=== PATIENT | female | born 1950 | race Caucasian/White ===

== ENCOUNTER 2017-10-08 13:33 | Outpatient (CLI) | payer MEDICARE, OTHER ==
--- NOTE | 2017-10-09 17:14 | Mammography Report ---
DIGITAL BILATERAL SCREENING MAMMOGRAM: 10/08/2017 COMPARISON STUDY: Mammogram 07/26/2016. INDICATION: Screening exam. TECHNIQUE: Bilateral MLO and CC breast views. FINDINGS The breast parenchyma is heterogeneously dense, which may limit the sensitivity of mammography. Prior right breast procedure. Architectural distortion corresponds to an apparent surgical scar. It is slightly more conspicuous on today's exam. No dominant mass or concerning cluster of microcalcifications is seen. IMPRESSION: BIRADS 3. PROBABLY BENIGN. Postsurgical scar is slightly more conspicuous. Recommend a followup mammogram in 3-6 months to further evaluate. STANDARD QUALIFYING STATEMENTS 1. This examination was reviewed with the aid of Computed-Aided Detection (CAD) . 2. A negative or benign imaging report should not delay biopsy if clinically suspicious findings are present. Consider surgical consultation if warranted. More than 5 % of cancers are not identified by imaging. 3. Dense breasts may obscure an underlying neoplasm. TD: 10/09/2017 16:44 DEJON
== END 2017-10-08 13:34 | disposition home or self-care (01) ==
LOC: DI.N 13:33
PROVIDERS: ATTEND Internal Medicine
DX: Z12.31 Encounter for screening mammogram for malignant neoplasm of breast (principal)
CPT/HCPCS: 77067

== ENCOUNTER 2018-04-11 14:14 | Outpatient (CLI) | payer MEDICARE ==
--- NOTE | 2018-04-11 15:30 | Mammography Report ---
Reason: OTH ABN AND INCONCLUSIVE FINDINGS ON DX IMAGING OF Procedure Date: 04/11/2018 Accession Number: [id number] / [id number] Procedure: WANDA - Diagnostic Dig RT CPT Code: FULL RESULT: EXAM: Diagnostic Dig RT DATE: 04/11/2018 3:13 PM CLINICAL HISTORY: BI-RADS 3. Prior mammogram showed slightly more conspicuous area of architectural distortion at a known surgical site. TECHNIQUE: Unilateral right MLO, LM, and CC breast views. COMPARISON: Mammogram October 08, 2017 FINDINGS: Breast parenchyma is heterogeneously dense which may limit the sensitivity of mammography. The area of architectural distortion seen on a prior mammogram is less conspicuous and seen only on the CC view on today's examination. No dominant mass or suspicious clustered microcalcifications is seen. IMPRESSION: BI-RADS Category 3. Probably benign. Area of architectural distortion at a known surgical site is less conspicuous on today's exam. Recommend 6 month follow-up bilateral diagnostic mammogram. BIRADS CATEGORY 3. Probably benign findings. STANDARD QUALIFYING STATEMENTS: 1. This examination was reviewed with the aid of Computer-Aided Detection (CAD). 2. A negative or benign imaging report should not delay biopsy if clinically suspicious findings are present. Consider surgical consultation if warrented. More than 5% of cancers are not identified by imaging. 3. Dense breasts may obscure an underlying neoplasm.
== END 2018-04-11 14:15 | disposition home or self-care (01) ==
LOC: DI 14:14
PROVIDERS: ATTEND Internal Medicine
DX: R92.8 Other abnormal and inconclusive findings on diagnostic imaging of breast (principal)

== ENCOUNTER 2018-10-11 10:09 | Outpatient (CLI) | payer MEDICARE | END 2018-10-11 10:10 | disposition home or self-care (01) | LOC: DI.N 10:09 | DX: Z53.21 Procedure and treatment not carried out due to patient leaving prior to being seen by health care provider (principal) ==

== ENCOUNTER 2018-11-14 10:56 | Outpatient (CLI) | payer MEDICARE ==
--- NOTE | 2018-11-14 11:48 | Mammography Report ---
Reason: ABNORMAL FINDINGS ON DX IMAGING OF PRT DIGESTIVE T Procedure Date: 11/14/2018 Accession Number: [id number] / [id number] Procedure: WANDA - Diagnostic Dig Bilat CPT Code: FULL RESULT: EXAM: Diagnostic Dig Bilat DATE: 11/14/2018 11:39 AM CLINICAL HISTORY: History of right lumpectomy for breast cancer. Patient returns for follow-up imaging of right breast lumpectomy site. TECHNIQUE: (B) - Bilateral CC and MLO views were obtained. COMPARISON: 04/11/2018, 10/08/2017 PARENCHYMAL PATTERN: (A) - The breasts demonstrate scattered fibroglandular densities bilaterally. FINDINGS: Stable minor treatment related postoperative architectural distortion in upper outer quadrant right breast, posterior one third. No suspicious finding. IMPRESSION: Benign findings. BI-RADS category 2. RECOMMENDATION: (ANNUAL) - Recommend routine annual screening mammography. BI-RADS CATEGORY: (2) - Benign Findings. STANDARD QUALIFYING STATEMENTS: 1. This examination was not reviewed with the aid of Computer-Aided Detection (CAD). 2. A negative or benign imaging report should not preclude biopsy if clinically suspicious findings are present. 3. Dense breasts may obscure an underlying neoplasm. 4. This examination was reviewed with the aid of 3D breast imaging (tomosynthesis).
== END 2018-11-14 10:57 | disposition home or self-care (01) ==
LOC: DI 10:56
PROVIDERS: ATTEND Specialist
DX: R93.3 Abnormal findings on diagnostic imaging of other parts of digestive tract (principal); Z08 Encounter for follow-up examination after completed treatment for malignant neoplasm; Z85.3 Personal history of malignant neoplasm of breast
CPT/HCPCS: 77066

== ENCOUNTER 2019-07-29 11:12 | Outpatient (CLI) | payer MEDICARE ==
--- NOTE | 2019-07-29 15:09 | XRAY Report ---
Reason: LT FOOT PAIN Procedure Date: 07/29/2019 Accession Number: [id number] / [id number] Procedure: XRN - Foot 3 View LT CPT Code: Final Report FULL RESULT: EXAM: LEFT FOOT RADIOGRAPHY EXAM DATE: 07/29/2019 11:28 AM. CLINICAL HISTORY: Left foot pain. COMPARISON: None. TECHNIQUE: 3 views. FINDINGS: Bones: Normal. No fractures or bone lesions. Joints: Normal. No subluxations. Soft Tissues: Normal. No soft tissue swelling. IMPRESSION: No acute fracture or dislocation. RADIA
== END 2019-07-29 11:13 | disposition home or self-care (01) ==
LOC: DI.N 11:12
PROVIDERS: ATTEND Physician Assistant
DX: M79.672 Pain in left foot (principal)

== ENCOUNTER 2020-11-29 10:18 | Outpatient (CLI) | payer MEDICARE ==
--- NOTE | 2020-11-30 13:17 | Mammography Report ---
BILATERAL DIGITAL SCREENING MAMMOGRAM 3D/2D: 11/29/2020 CLINICAL: Routine screening. Personal history of right breast cancer. Comparison is made to exams dated: 11/14/2018 mammogram, 04/11/2018 mammogram, 10/08/2017 mammogram, mammogram, 07/02/2015 mammogram, and 08/12/2013 mammogram - [facility]. The re are scattered fibroglandular elements in both breasts. No significant masses, calcifications, or other findings are seen in either breast. There has been no significant interval change. IMPRESSION: NEGATIVE There is no mammographic evidence of malignancy. A 1 year screening mammogram is recommended. This exam was interpreted at Station ID: [id number]. NOTE: For mammograms, a report in lay terms will be sent to the patient. Approximately 15% of breast malignancies will not be visualized mammographically. In the management of a palpable breast mass, a negative mammogram must not discourage biopsy of a clinically suspicious lesion. Electronically Signed By: rAun Cullen M.D. [facility] [place]11/29/2020 10:51:31 ACR BI-RADS Category 1: Negative 3341F PARENCHYMAL PATTERN: (A) - The breast(s) demonstrate(s) scattered fibroglandular densities. BI-RADS CATEGORY: (1) - 1 RECOMMENDATION: (ANNUAL) - Recommend routine annual screening mammography. [id number] 1 year screening LATERALITY: (B)
== END 2020-11-29 10:19 | disposition home or self-care (01) ==
LOC: DI.N 10:18
DX: Z12.31 Encounter for screening mammogram for malignant neoplasm of breast (principal); Z85.3 Personal history of malignant neoplasm of breast

== ENCOUNTER 2021-09-07 10:45 | Outpatient (CLI) | payer MEDICARE ==
[2021-09-09 23:37] LABS: BACTERIAL VAGINOSIS DNA NEGATIVE (NEGATIVE); CANDIDA GLABRATA DNA NEGATIVE (NEGATIVE); CANDIDA GROUP DNA NEGATIVE (NEGATIVE); CANDIDA KRUSEI DNA NEGATIVE (NEGATIVE); TRICHOMONAS VAGINALIS DNA NEGATIVE (NEGATIVE)
== END 2021-09-07 23:59 | disposition home or self-care (01) ==
LOC: LAB 10:45
PROVIDERS: ATTEND Obstetrics & Gynecology
DX: N76.0 Acute vaginitis (principal)
CPT/HCPCS: 87661; 87801

== ENCOUNTER 2022-02-07 10:20 | Outpatient (CLI) | payer MEDICARE ==
--- NOTE | 2022-02-08 08:13 | Mammography Report ---
BILATERAL DIGITAL SCREENING MAMMOGRAM 3D/2D: 02/07/2022 CLINICAL: Routine screening. Personal history of right breast cancer. Comparison is made to exams dated: 11/29/2020 mammogram, 11/14/2018 mammogram, 04/11/2018 mammogram, 09/27 mammogram, 07/26/2016 mammogram, and 07/02/2015 mammogram - [facility]. Ther e are scattered fibroglandular elements in both breasts. No significant masses, calcifications, or other findings are seen in either breast. There has been no significant interval change. IMPRESSION: NEGATIVE There is no mammographic evidence of malignancy. A 1 year screening mammogram is recommended. This exam was interpreted at Station ID: [id number]. NOTE: For mammograms, a report in lay terms will be sent to the patient. Approximately 15% of breast malignancies will not be visualized mammographically. In the management of a palpable breast mass, a negative mammogram must not discourage biopsy of a clinically suspicious lesion. Electronically Signed By: Leandro Musa M.D. aty/dominickrad:02/07/2022 11:48:52 ACR BI-RADS Category 1: Negative 3341F PARENCHYMAL PATTERN: (A) - The breast(s) demonstrate(s) scattered fibroglandular densities. BI-RADS CATEGORY: (1) - 1 RECOMMENDATION: (ANNUAL) - Recommend routine annual screening mammography. [id number] 1 year screening LATERALITY: (B)
== END 2022-02-07 10:21 | disposition home or self-care (01) ==
LOC: DI.N 10:20
DX: Z12.31 Encounter for screening mammogram for malignant neoplasm of breast (principal); Z85.3 Personal history of malignant neoplasm of breast

== ENCOUNTER 2023-03-12 10:20 | Outpatient (CLI) | payer MEDICARE ==
--- NOTE | 2023-03-13 09:11 | Mammography Report ---
BILATERAL DIGITAL SCREENING MAMMOGRAM 3D/2D: 03/12/2023 CLINICAL: Routine screening. Personal history of right breast cancer. Comparison is made to exams dated: 02/07/2022 mammogram, 11/29/2020 mammogram, 11/14/2018 mammogram, 03/30 mammogram, 10/08/2017 mammogram, and 07/26/2016 mammogram - [facility]. There are scattered areas of fibroglandular density in both breasts (category b / 25%-50% glandular t issue). There is a benign calcification in the right breast. No significant masses, calcifications, or other findings are seen in either breast. There has been no significant interval change. IMPRESSION: BENIGN There is no mammographic evidence of malignancy. A 1 year screening mammogram is recommended. This exam was interpreted at Station ID: [id number]. NOTE: For mammograms, a report in lay terms will be sent to the patient. Approximately 15% of breast malignancies will not be visualized mammographically. In the management of a palpable breast mass, a negative mammogram must not discourage biopsy of a clinically suspicious lesion. Electronically Signed By: Ahmet Sullivan M.D. acr/penrad:03/12/2023 14:26:45 letter sent: No_Letter ACR BI-RADS Category 2: Benign Finding(s) 3342F PARENCHYMAL PATTERN: (A) - The breast(s) demonstrate(s) scattered fibroglandular densities. BI-RADS CATEGORY: (2) - 2 Mammogram [id number] 1 year screening LATERALITY: (B)
== END 2023-03-12 10:21 | disposition home or self-care (01) ==
LOC: DI.N 10:20
PROVIDERS: ATTEND Nurse Practitioner Family
DX: Z12.31 Encounter for screening mammogram for malignant neoplasm of breast (principal); Z85.3 Personal history of malignant neoplasm of breast